=== PATIENT | male | born 1985 | race Caucasian/White ===

== ENCOUNTER 2024-02-01 12:36 | Emergency (ER) | payer OTHER, SELFPAY ==
--- NOTE | 2024-02-01 12:42 | XR_ITS ---
WS: [id number] XR ribs LT mn 3V w CXR1V [id number] REASON FOR EXAM: injury FINDINGS: No left rib fracture is identified. No abnormality of the left lung or pleura. XR/XR ribs LT mn 3V w CXR1V [id number] IMPRESSION: No acute abnormality.
[2024-02-01 12:55] VITALS: BP 131/85; PULSE 110; TEMP 36.9; O2SAT 97; BMI 32.1
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
== END 2024-02-01 14:32 | disposition home or self-care (01) ==
PROVIDERS: Emergency Provider Physician Assistant
DX: S20.212A Contusion of left front wall of thorax, initial encounter (principal); S90.32XA Contusion of left foot, initial encounter; V89.2XXA Person injured in unspecified motor-vehicle accident, traffic, initial encounter
CPT/HCPCS: 71101; 73630; 99284